=== PATIENT | male | born 1965 | race Hispanic/Latino ===

== ENCOUNTER 2020-12-17 11:49 | Emergency (ER) | payer MEDICAID ==
[~2020-12-17] VITALS: Ht 165.1 cm; Wt 93.0 kg
[2020-12-17 11:51] VITALS: BP 155/86
[2020-12-17 12:30] LABS: EOSINOPHILS % (AUTO) 3.2 % (0.0-8.0); HEMATOCRIT 31.2 % (42-54); LYMPHOCYTES % (AUTO) 43.2 % (21.0-51.0); MEAN CORPUSCULAR HEMOGLOBIN 27.9 pg (27.0-33.0); MEAN CORPUSCULAR HGB CONC 32.1 g/dL (32.0-36.0); MEAN CORPUSCULAR VOLUME 86.9 fL (79-99); MONOCYTES % (AUTO) 10.8 % (3.0-13.0); NEUTROPHILS % (AUTO) 41.7 % (40.0-77.0); PLATELET COUNT (AUTO) 107 K/uL (130-400); RED BLOOD CELL COUNT(AUTO) 3.59 MIL/uL (4.50-6.20); RED CELL DISTRIBUTION WIDTH 15.7 % (11.0-15.5); WHITE BLOOD COUNT (AUTO) 7.1 K/uL (4.8-10.8)
[2020-12-17 12:33] LABS: APPEARANCE,URINE Clear (CLEAR); BILIRUBIN,URINE Negative (NEGATIVE); COLOR,URINE Yellow (YELLOW); GLUCOSE, URINE (UA) Negative (NEGATIVE); KETONES,URINE Negative (NEGATIVE); LEUKOCYTE ESTERASE ,URINE Negative (NEGATIVE); NITRATE,URINE Negative (NEGATIVE); OCCULT BLOOD,URINE Negative (NEGATIVE); PROTEIN,URINE Negative (NEGATIVE)
[2020-12-17 12:41] LABS: INR 1.19 (0.85-1.15); POTASSIUM 3.9 mmol/L (3.5-5.1); PROTHROMBIN TIME 12.8 SEC (9.6-11.6)
[2020-12-17 12:45] LABS: BACTERIA,URINE None Seen /HPF (None Seen); RBC,URINE 0-1 /HPF (0-1); SQUAMOUS EPITHELIAL CELL,UR 0-2 /HPF (0-2); WBC,URINE 0-1 /HPF (0-1)
[2020-12-17 12:55] LABS: ALBUMIN 2.9 g/dL (3.5-5.0); B-TYPE NATRIURETIC PEPTIDE 46 pg/mL (0-100); BILIRUBIN,TOTAL 2.4 mg/dL (0.2-1.0); TOTAL PROTEIN, SERUM 7.8 g/dL (6.0-8.3)
[2020-12-17] MEDS ORDERED: ASPIRIN 325MG TAB PO SCH (12:59)
[2020-12-17] MEDS ORDERED: ACETAMINOPHEN 500 MG TABLET PO SCH (12:59)
[2020-12-17 13:26] LABS: AMPHET/METH SCREEN,URINE NEGATIVE (NEGATIVE); BARBITURATE SCREEN, URINE NEGATIVE (NEGATIVE); BENZODIAZEPINES SCREEN,URINE POSITIVE (NEGATIVE); CANNABINOID SCREEN,URINE NEGATIVE (NEGATIVE); COCAINE SCREEN,URINE NEGATIVE (NEGATIVE); OPIATE SCREEN,URINE NEGATIVE (NEGATIVE); PHENCYCLIDINE SCREEN,URINE NEGATIVE (NEGATIVE)
[2020-12-17 16:02] VITALS: BP 147/79
== END 2020-12-17 16:52 | disposition home or self-care (01) ==
LOC: EDH 11:49
DX: R07.89 Other chest pain (principal); F10.10 Alcohol abuse, uncomplicated; M54.9 Dorsalgia, unspecified; R00.2 Palpitations; R20.2 Paresthesia of skin; E78.00 Pure hypercholesterolemia, unspecified; I10 Essential (primary) hypertension; F41.9 Anxiety disorder, unspecified; Z79.82 Long term (current) use of aspirin
CPT/HCPCS: 36415; 70450; 71045; 80053; 80305; 81001; 82550; 83880; 84484; 85025; 85610; 85730; 93005

== ENCOUNTER 2021-01-02 11:43 | Inpatient (IN) | payer MEDICAID ==
[~2021-01-02] VITALS: Ht 165.1 cm; Wt 86.3 kg
[2021-01-02 12:38] LABS: BASOPHILS % (AUTO) 0.4 % (0.0-5.0); EOSINOPHILS % (AUTO) 0.1 % (0.0-8.0); HEMATOCRIT 26.1 % (42-54); LYMPHOCYTES % (AUTO) 9.9 % (21.0-51.0); MEAN CORPUSCULAR HEMOGLOBIN 29.5 pg (27.0-33.0); MEAN CORPUSCULAR HGB CONC 31.8 g/dL (32.0-36.0); MEAN CORPUSCULAR VOLUME 92.9 fL (79-99); MONOCYTES % (AUTO) 7.7 % (3.0-13.0); NEUTROPHILS % (AUTO) 81.5 % (40.0-77.0); PLATELET COUNT (AUTO) 238 K/uL (130-400); RED BLOOD CELL COUNT(AUTO) 2.81 MIL/uL (4.50-6.20); RED CELL DISTRIBUTION WIDTH 22.7 % (11.0-15.5); WHITE BLOOD COUNT (AUTO) 11.6 K/uL (4.8-10.8)
[2021-01-02 12:48] LABS: CREATININE 1.5 mg/dL (0.5-1.5); POTASSIUM 3.8 mmol/L (3.5-5.1)
[2021-01-02 12:53] LABS: ALBUMIN 2.4 g/dL (3.5-5.0); BILIRUBIN,TOTAL 3.4 mg/dL (0.2-1.0); TOTAL PROTEIN, SERUM 6.7 g/dL (6.0-8.3)
[2021-01-02 15:02] LABS: ALCOHOL, BLOOD < 3 mg/dL (0-10)
[2021-01-02 15:07] LABS: ACETAMINOPHEN < 1 mcg/mL (10-29); SALICYLATE < 2.8 mg/dL (2.8-20.0)
[2021-01-02 15:08] LABS: AMMONIA 292 umol/L (11-32)
[2021-01-02] MEDS ORDERED: ONDANSETRON 4MG INJ IV PRN (16:30)
[2021-01-02] MEDS ORDERED: LACTULOSE 20 GM/30 ML UDCUP PO PRN (16:30)
[2021-01-02] MEDS ORDERED: HYDRALAZINE 20MG/ML VIAL IV PRN (16:30)
[2021-01-02] MEDS: PANTOPRAZOLE 40MG INJ 80 MG in 0.9%NACL 100ML 100 ML IV SCH (17:15)
[2021-01-02] MEDS: OCTREOTIDE ACETATE 1,250 MCG in 0.9% NACL 250ML 250 ML IV SCH (17:15)
[2021-01-02] MEDS: LACTATED RINGERS 1000ML 1,000 ML IV SCH (17:15)
[2021-01-02] MEDS: LACTULOSE 20 GM/30 ML UDCUP PR SCH (18:39)
[2021-01-02 20:56] LABS: APPEARANCE,URINE Clear (CLEAR); BILIRUBIN,URINE Moderate (NEGATIVE); COLOR,URINE Dark Yellow (YELLOW); GLUCOSE, URINE (UA) Negative (NEGATIVE); KETONES,URINE Trace mg/dL (NEGATIVE); LEUKOCYTE ESTERASE ,URINE Small (NEGATIVE); NITRATE,URINE Positive (NEGATIVE); OCCULT BLOOD,URINE Negative (NEGATIVE); PROTEIN,URINE Trace mg/dL (NEGATIVE)
[2021-01-02] MEDS: ZOSYN 3.375GM+NS 50ML 50 ML IV SCH (21:00)
[2021-01-02 21:02] LABS: RBC,URINE 0-1 /HPF (0-1)
[2021-01-02 21:04] LABS: BACTERIA,URINE Rare /HPF (None Seen); SQUAMOUS EPITHELIAL CELL,UR Rare /HPF (0-2)
[2021-01-02 21:05] LABS: AMPHET/METH SCREEN,URINE NEGATIVE (NEGATIVE); BARBITURATE SCREEN, URINE NEGATIVE (NEGATIVE); BENZODIAZEPINES SCREEN,URINE POSITIVE (NEGATIVE); CANNABINOID SCREEN,URINE NEGATIVE (NEGATIVE); COCAINE SCREEN,URINE NEGATIVE (NEGATIVE); MUCUS,URINE Few LPF (None Seen); OPIATE SCREEN,URINE NEGATIVE (NEGATIVE); PHENCYCLIDINE SCREEN,URINE NEGATIVE (NEGATIVE)
[2021-01-02 21:44] LABS: HEMATOCRIT 25.1 % (42-54)
[2021-01-02] MEDS ORDERED: 0.9%NACL 50ML 50 ML IV ONE (22:30)
[2021-01-03] VITALS (14 sets, daily range): BP systolic 112–171; BP diastolic 65–89
[2021-01-03] MEDS: LACTULOSE 20 GM/30 ML UDCUP PR SCH ×2 (00:44→06:30)
[2021-01-03] MEDS ORDERED: PANTOPRAZOLE 40 MG/VIAL ONE ×2 (01:54→12:02)
[2021-01-03] MEDS ORDERED: 0.9%NACL 100ML 100 ML ONE ×2 (01:55→12:03)
[2021-01-03] MEDS: PANTOPRAZOLE 40MG INJ 80 MG in 0.9%NACL 100ML 100 ML IV SCH (01:59)
[2021-01-03] MEDS ORDERED: 0.9%NACL 50ML 50 ML IV ONE ×2 (06:28→13:04)
[2021-01-03] MEDS: ZOSYN 3.375GM+NS 50ML 50 ML IV SCH ×3 (06:30→21:52)
[2021-01-03] MEDS: LACTATED RINGERS 1000ML 1,000 ML IV SCH ×2 (06:30→21:40)
[2021-01-03 07:28] LABS: ALBUMIN 2.2 g/dL (3.5-5.0); BILIRUBIN,TOTAL 3.6 mg/dL (0.2-1.0); CREATININE 1.2 mg/dL (0.5-1.5); POTASSIUM 4.1 mmol/L (3.5-5.1); TOTAL PROTEIN, SERUM 6.2 g/dL (6.0-8.3)
[2021-01-03] MEDS ORDERED: PHARMACY COMMUNICATION MISC SCH (10:00)
[2021-01-03] MEDS ORDERED: LACTULOSE 20 GM/30 ML UDCUP PR SCH ×3 (10:00→20:00)
[2021-01-03 10:31] LABS: INR 1.32 (0.85-1.15)
[2021-01-03 16:57] LABS: HEMATOCRIT 25.5 % (42-54)
[2021-01-03 21:44] LABS: HEMATOCRIT 25.5 % (42-54)
[2021-01-04] VITALS (22 sets, daily range): BP systolic 112–152; BP diastolic 63–89
[2021-01-04] MEDS: LACTATED RINGERS 1000ML 1,000 ML IV SCH ×2 (02:59→19:00)
[2021-01-04] MEDS: PANTOPRAZOLE 40MG INJ 80 MG in 0.9%NACL 100ML 100 ML IV SCH (03:00)
[2021-01-04] MEDS: ZOSYN 3.375GM+NS 50ML 50 ML IV SCH ×3 (05:47→22:18)
[2021-01-04 05:52] LABS: BASOPHILS % (AUTO) 0.7 % (0.0-5.0); EOSINOPHILS % (AUTO) 1.1 % (0.0-8.0); HEMATOCRIT 24.1 % (42-54); LYMPHOCYTES % (AUTO) 23.9 % (21.0-51.0); MEAN CORPUSCULAR HEMOGLOBIN 29.7 pg (27.0-33.0); MEAN CORPUSCULAR VOLUME 93.1 fL (79-99); MONOCYTES % (AUTO) 12.6 % (3.0-13.0); NEUTROPHILS % (AUTO) 61.3 % (40.0-77.0); PLATELET COUNT (AUTO) 237 K/uL (130-400); RED BLOOD CELL COUNT(AUTO) 2.59 MIL/uL (4.50-6.20); RED CELL DISTRIBUTION WIDTH 23.5 % (11.0-15.5)
[2021-01-04 06:08] LABS: ALBUMIN 2.1 g/dL (3.5-5.0); BILIRUBIN,TOTAL 3.3 mg/dL (0.2-1.0); CREATININE 1.2 mg/dL (0.5-1.5); POTASSIUM 3.7 mmol/L (3.5-5.1); TOTAL PROTEIN, SERUM 6.1 g/dL (6.0-8.3)
[2021-01-04 09:26] LABS: INR 1.34 (0.85-1.15); PROTHROMBIN TIME 14.2 SEC (9.6-11.6)
[2021-01-04] MEDS ORDERED: RIFAXIMIN 550 MG TABLET PO SCH (10:30)
[2021-01-04] MEDS: OCTREOTIDE ACETATE 1,250 MCG in 0.9% NACL 250ML 250 ML IV SCH (11:50)
[2021-01-04] MEDS: RIFAXIMIN 550 MG TABLET PO SCH ×2 (11:50→22:18)
[2021-01-04] MEDS: LACTULOSE 20 GM/30 ML UDCUP PO SCH ×3 (11:51→22:19)
[2021-01-04] MEDS ORDERED: PEG 3350/NA SULF,BICARB,CL/KCL 4000 ML SOLN PO SCH ×2 (16:00→17:00)
[2021-01-04] MEDS ORDERED: LORAZEPAM 2 MG/ML 1 ML VIAL ONE (16:07)
[2021-01-04] MEDS: CHLORDIAZEPOXIDE HCL 25 MG CAP PO PRN ×2 (16:21→17:19)
[2021-01-04] MEDS ORDERED: CHLORDIAZEPOXIDE HCL 25 MG CAP PO PRN (16:30)
[2021-01-04] MEDS ORDERED: PHARMACY COMMUNICATION MISC PRN (16:30)
[2021-01-04] MEDS ORDERED: LORAZEPAM 2 MG/ML 1 ML VIAL IVP PRN (16:30)
[2021-01-04 16:55] LABS: HEMATOCRIT 24.6 % (42-54)
[2021-01-04] MEDS ORDERED: 0.9%NACL 50ML 50 ML IV ONE (20:28)
[2021-01-05] VITALS (28 sets, daily range): BP systolic 90–159; BP diastolic 49–92
[2021-01-05 01:26] LABS: HEMATOCRIT 24.7 % (42-54)
[2021-01-05 03:56] LABS: BASOPHILS % (AUTO) 0.9 % (0.0-5.0); EOSINOPHILS % (AUTO) 1.8 % (0.0-8.0); LYMPHOCYTES % (AUTO) 28.2 % (21.0-51.0); MEAN CORPUSCULAR HEMOGLOBIN 29.3 pg (27.0-33.0); MEAN CORPUSCULAR HGB CONC 31.3 g/dL (32.0-36.0); MEAN CORPUSCULAR VOLUME 93.5 fL (79-99); MONOCYTES % (AUTO) 14.6 % (3.0-13.0); NEUTROPHILS % (AUTO) 54.1 % (40.0-77.0); PLATELET COUNT (AUTO) 218 K/uL (130-400); RED BLOOD CELL COUNT(AUTO) 2.46 MIL/uL (4.50-6.20); WHITE BLOOD COUNT (AUTO) 8.9 K/uL (4.8-10.8)
[2021-01-05 04:11] LABS: ALBUMIN 2.1 g/dL (3.5-5.0); BILIRUBIN,TOTAL 3.7 mg/dL (0.2-1.0); CREATININE 1.2 mg/dL (0.5-1.5); MAGNESIUM 1.9 mg/dL (1.80-2.40); POTASSIUM 3.6 mmol/L (3.5-5.1); TOTAL PROTEIN, SERUM 5.8 g/dL (6.0-8.3)
[2021-01-05] MEDS: LACTATED RINGERS 1000ML 1,000 ML IV SCH (05:18)
[2021-01-05] MEDS ORDERED: 0.9%NACL 50ML 50 ML IV ONE (05:31)
[2021-01-05] MEDS: LACTULOSE 20 GM/30 ML UDCUP PO SCH ×3 (06:00→21:55)
[2021-01-05] MEDS: ZOSYN 3.375GM+NS 50ML 50 ML IV SCH ×3 (06:22→20:14)
[2021-01-05] MEDS ORDERED: LIDOCAINE HCL 1% 20 ML VIAL ONE (07:26)
[2021-01-05] MEDS ORDERED: PROPOFOL 10 MG/ML 20ML VIAL IV ONE (07:26)
[2021-01-05] MEDS: CHLORDIAZEPOXIDE HCL 25 MG CAP PO PRN (13:43)
[2021-01-05] MEDS: RIFAXIMIN 550 MG TABLET PO SCH ×2 (13:43→20:14)
[2021-01-05] MEDS: LORAZEPAM 2 MG/ML 1 ML VIAL IVP PRN ×3 (13:44→20:14)
[2021-01-05] MEDS ORDERED: DEXMEDETOMIDINE 400MCG/NS100ML IV SCH (14:00)
[2021-01-05] MEDS ORDERED: PEG 3350/NA SULF,BICARB,CL/KCL 4000 ML SOLN PO SCH (16:00)
[2021-01-05 20:59] LABS: HEMATOCRIT 24.6 % (42-54)
[2021-01-06] VITALS (25 sets, daily range): BP systolic 101–139; BP diastolic 52–84
[2021-01-06] MEDS ORDERED: LIDOCAINE HCL-MPF 1% 2ML VIAL IV PRN (01:30)
[2021-01-06] MEDS ORDERED: MAGNESIUM 2GM PREMIX 50ML 50 ML IV PRN (01:30)
[2021-01-06] MEDS ORDERED: POTASSIUM CHLORIDE 20MEQ/100ML 100 ML IV PRN (01:30)
[2021-01-06] MEDS ORDERED: POTASSIUM CHLORIDE 20MEQ/100ML 100 ML IV ONE (01:32)
[2021-01-06 03:57] LABS: BASOPHILS % (AUTO) 1.2 % (0.0-5.0); EOSINOPHILS % (AUTO) 3.7 % (0.0-8.0); HEMATOCRIT 23.3 % (42-54); LYMPHOCYTES % (AUTO) 43.7 % (21.0-51.0); MEAN CORPUSCULAR HEMOGLOBIN 29.6 pg (27.0-33.0); MEAN CORPUSCULAR HGB CONC 31.3 g/dL (32.0-36.0); MEAN CORPUSCULAR VOLUME 94.3 fL (79-99); MONOCYTES % (AUTO) 14.1 % (3.0-13.0); PLATELET COUNT (AUTO) 171 K/uL (130-400); RED BLOOD CELL COUNT(AUTO) 2.47 MIL/uL (4.50-6.20); RED CELL DISTRIBUTION WIDTH 22.1 % (11.0-15.5); WHITE BLOOD COUNT (AUTO) 6.5 K/uL (4.8-10.8)
[2021-01-06 04:12] LABS: ALBUMIN 1.8 g/dL (3.5-5.0); BILIRUBIN,TOTAL 3.2 mg/dL (0.2-1.0); CREATININE 1.1 mg/dL (0.5-1.5); TOTAL PROTEIN, SERUM 5.2 g/dL (6.0-8.3)
[2021-01-06] MEDS ORDERED: 0.9%NACL 50ML 50 ML IV ONE (05:27)
[2021-01-06] MEDS: LACTULOSE 20 GM/30 ML UDCUP PO SCH ×3 (05:41→20:31)
[2021-01-06] MEDS: ZOSYN 3.375GM+NS 50ML 50 ML IV SCH (05:41)
[2021-01-06] MEDS: PANTOPRAZOLE 40MG INJ 80 MG in 0.9%NACL 100ML 100 ML IV SCH (06:47)
[2021-01-06] MEDS: RIFAXIMIN 550 MG TABLET PO SCH ×2 (08:45→20:31)
[2021-01-06] MEDS ORDERED: LISI20TA24 PO (09:32)
[2021-01-06] MEDS ORDERED: ALPR2TAB7 PO (09:32)
[2021-01-06] MEDS ORDERED: PRAV40TA3 PO (09:33)
[2021-01-06 10:28] LABS: HEMATOCRIT 23.4 % (42-54)
[2021-01-06] MEDS ORDERED: M.V.I. IV [ADULT] 10 ML, FOLIC ACID 1 MG, THIAMINE HCL 100 MG in 0.9%NACL 1000ML 1,000 ML IV SCH (11:45)
[2021-01-06] MEDS ORDERED: COMPOUND IV REFRIGERATED 1 EACH MISC ONE (12:23)
[2021-01-06] MEDS: LORAZEPAM 2 MG/ML 1 ML VIAL IVP PRN (12:52)
[2021-01-06] MEDS ORDERED: PROPOFOL 10 MG/ML 20ML VIAL IV ONE (13:23)
[2021-01-06] MEDS: PANTOPRAZOLE 40 MG/VIAL IVP SCH (20:31)
[2021-01-06 23:25] LABS: HEMATOCRIT 23.8 % (42-54)
[2021-01-07] VITALS (11 sets, daily range): BP systolic 94–158; BP diastolic 50–83
[2021-01-07 03:09] LABS: HEPATITIS B CORE IGM Negative (Negative); HEPATITIS Bs ANTIGEN SCREEN P Negative (Negative)
[2021-01-07 03:32] LABS: MEAN CORPUSCULAR HEMOGLOBIN 30.1 pg (27.0-33.0); MEAN CORPUSCULAR HGB CONC 32.3 g/dL (32.0-36.0); MEAN CORPUSCULAR VOLUME 93.1 fL (79-99); RED BLOOD CELL COUNT(AUTO) 2.16 MIL/uL (4.50-6.20); RED CELL DISTRIBUTION WIDTH 21.9 % (11.0-15.5); WHITE BLOOD COUNT (AUTO) 9.1 K/uL (4.8-10.8)
[2021-01-07 03:47] LABS: HEMATOCRIT 20.1 % (42-54)
[2021-01-07 03:50] LABS: ALBUMIN 1.7 g/dL (3.5-5.0); BILIRUBIN,TOTAL 2.9 mg/dL (0.2-1.0); CREATININE 0.9 mg/dL (0.5-1.5); POTASSIUM 3.5 mmol/L (3.5-5.1); TOTAL PROTEIN, SERUM 4.7 g/dL (6.0-8.3)
[2021-01-07] MEDS ORDERED: POTASSIUM CHLORIDE 10% ELIXIR 20 MEQ/15 ML UDCUP PO PRN (05:30)
[2021-01-07] MEDS: LACTULOSE 20 GM/30 ML UDCUP PO SCH ×3 (05:30→21:52)
[2021-01-07 08:06] LABS: HEMATOCRIT 24.1 % (42-54); MEAN CORPUSCULAR HEMOGLOBIN 29.3 pg (27.0-33.0); MEAN CORPUSCULAR HGB CONC 31.5 g/dL (32.0-36.0); MEAN CORPUSCULAR VOLUME 93.1 fL (79-99); RED BLOOD CELL COUNT(AUTO) 2.59 MIL/uL (4.50-6.20); RED CELL DISTRIBUTION WIDTH 20.5 % (11.0-15.5); WHITE BLOOD COUNT (AUTO) 8.6 K/uL (4.8-10.8)
[2021-01-07 08:28] LABS: ALBUMIN 1.8 g/dL (3.5-5.0); BILIRUBIN,TOTAL 3.4 mg/dL (0.2-1.0); POTASSIUM 3.6 mmol/L (3.5-5.1)
[2021-01-07] MEDS: PANTOPRAZOLE 40 MG/VIAL IVP SCH (09:33)
[2021-01-07] MEDS: RIFAXIMIN 550 MG TABLET PO SCH ×2 (09:34→20:47)
[2021-01-07] MEDS: THIAMINE HCL 100 MG TABLET PO SCH ×2 (10:00→20:47)
[2021-01-07] MEDS: FOLIC ACID 1 MG TABLET PO SCH (10:00)
[2021-01-07] MEDS: PANTOPRAZOLE 40 MG TAB DR PO SCH (10:00)
[2021-01-07] MEDS ORDERED: NITROGLYCERIN 50MG/D5W 250ML 1 BOT ONE (13:50)
[2021-01-07] MEDS ORDERED: ROCURONIUM 10MG/1ML SYR 10 MG/ML ML ONE (14:00)
[2021-01-07 15:17] LABS: HEPATITIS Bs ANTIGEN SCREEN P Negative (Negative)
[2021-01-08 04:31] VITALS: BP 119/84
[2021-01-08 04:43] LABS: HEMATOCRIT 22.3 % (42-54); MEAN CORPUSCULAR HEMOGLOBIN 30.1 pg (27.0-33.0); MEAN CORPUSCULAR HGB CONC 32.3 g/dL (32.0-36.0); MEAN CORPUSCULAR VOLUME 93.3 fL (79-99); RED BLOOD CELL COUNT(AUTO) 2.39 MIL/uL (4.50-6.20); RED CELL DISTRIBUTION WIDTH 20.6 % (11.0-15.5); RETICULOCYTE % (AUTO) 4.92 % (0.42-2.23); WHITE BLOOD COUNT (AUTO) 8.5 K/uL (4.8-10.8)
[2021-01-08 04:45] LABS: INR 1.51 (0.85-1.15); PROTHROMBIN TIME 15.9 SEC (9.6-11.6)
[2021-01-08 04:46] LABS: PARTIAL THROMBOPLASTIN TIME 39.5 SEC (26.3-35.5)
[2021-01-08 04:58] LABS: % IRON SATURATION 14.1 % (30-44)
[2021-01-08 04:59] LABS: ALBUMIN 1.8 g/dL (3.5-5.0); BILIRUBIN,TOTAL 3.3 mg/dL (0.2-1.0); CREATININE 1.1 mg/dL (0.5-1.5); MAGNESIUM 1.8 mg/dL (1.80-2.40); PHOSPHORUS 1.9 mg/dL (2.5-4.9); POTASSIUM 3.9 mmol/L (3.5-5.1); THYROID STIMULATING HORMONE 2.61 uIU/mL (0.36-3.74); TOTAL PROTEIN, SERUM 5.2 g/dL (6.0-8.3)
[2021-01-08] MEDS: LACTULOSE 20 GM/30 ML UDCUP PO SCH ×3 (05:17→21:10)
[2021-01-08 07:44] VITALS: BP 112/68
[2021-01-08] MEDS: FOLIC ACID 1 MG TABLET PO SCH (09:53)
[2021-01-08] MEDS: PANTOPRAZOLE 40 MG TAB DR PO SCH (09:53)
[2021-01-08] MEDS: RIFAXIMIN 550 MG TABLET PO SCH ×2 (09:53→21:08)
[2021-01-08] MEDS: THIAMINE HCL 100 MG TABLET PO SCH ×2 (09:53→21:08)
[2021-01-08 12:00] VITALS: BP 126/68
[2021-01-08 16:00] VITALS: BP 117/65
[2021-01-08 20:00] VITALS: BP 129/64
[2021-01-08 23:53] VITALS: BP 109/44
[2021-01-09 04:02] VITALS: BP 109/59
[2021-01-09 05:20] LABS: CREATININE 0.9 mg/dL (0.5-1.5); POTASSIUM 3.7 mmol/L (3.5-5.1)
[2021-01-09 05:37] LABS: MEAN CORPUSCULAR HEMOGLOBIN 29.6 pg (27.0-33.0); MEAN CORPUSCULAR HGB CONC 31.7 g/dL (32.0-36.0); MEAN CORPUSCULAR VOLUME 93.5 fL (79-99); PLATELET COUNT (AUTO) 123 K/uL (130-400); RED BLOOD CELL COUNT(AUTO) 1.99 MIL/uL (4.50-6.20); RED CELL DISTRIBUTION WIDTH 21.6 % (11.0-15.5); WHITE BLOOD COUNT (AUTO) 7.4 K/uL (4.8-10.8)
[2021-01-09 05:44] LABS: HEMATOCRIT 18.6 % (42-54)
[2021-01-09] MEDS: LACTULOSE 20 GM/30 ML UDCUP PO SCH ×3 (06:00→19:44)
[2021-01-09 08:00] VITALS: BP 120/63
[2021-01-09 08:08] LABS: HEMATOCRIT 21.5 % (42-54)
[2021-01-09] MEDS: THIAMINE HCL 100 MG TABLET PO SCH ×2 (09:00→19:38)
[2021-01-09] MEDS: PANTOPRAZOLE 40 MG TAB DR PO SCH (09:00)
[2021-01-09] MEDS: FOLIC ACID 1 MG TABLET PO SCH (09:01)
[2021-01-09] MEDS: RIFAXIMIN 550 MG TABLET PO SCH ×2 (09:01→19:38)
[2021-01-09 12:00] VITALS: BP 153/46
[2021-01-09 16:00] VITALS: BP 128/82
[2021-01-09 19:19] VITALS: BP 142/75
[2021-01-09 21:00] LABS: HEMATOCRIT 22.2 % (42-54)
[2021-01-09 23:37] VITALS: BP 149/92
[2021-01-10 03:28] VITALS: BP 133/75
[2021-01-10] MEDS: LACTULOSE 20 GM/30 ML UDCUP PO SCH ×2 (05:57→13:20)
[2021-01-10] MEDS ORDERED: RIFA550T PO (06:13)
[2021-01-10] MEDS ORDERED: LACT PO (06:13)
[2021-01-10] MEDS ORDERED: FOLI1 PO (06:13)
[2021-01-10] MEDS ORDERED: THIA100T91 PO (06:13)
[2021-01-10 08:23] VITALS: BP 131/81
[2021-01-10] MEDS: RIFAXIMIN 550 MG TABLET PO SCH (09:36)
[2021-01-10] MEDS: THIAMINE HCL 100 MG TABLET PO SCH (09:36)
[2021-01-10] MEDS: FOLIC ACID 1 MG TABLET PO SCH (09:36)
[2021-01-10] MEDS: PANTOPRAZOLE 40 MG TAB DR PO SCH (09:36)
[2021-01-10 10:46] VITALS: BP 142/62
[2021-01-10] MEDS ORDERED: FLU VACC QS2021-22(6MOS UP)/PF 60 MCG/0.5 ML ML IM ONE (11:00)
[2021-01-10] MEDS ORDERED: FLU VACC QS2021-22(6MOS UP)/PF 60 MCG/0.5 ML ML IM SCH (12:00)
[2021-01-10 15:55] VITALS: BP 143/77
== END 2021-01-10 18:10 | disposition home or self-care (01) | DRG 280 ==
LOC: EDH 11:43 → EDHIP 11:44 → 2DH 01-03 14:43 → 3BH 01-07 19:46
PROVIDERS: ADMIT Internal Medicine; ATTEND Internal Medicine
PROC: 0DJ08ZZ Inspection of Upper Intestinal Tract, Via Natural or Artificial Opening Endoscopic (ICD-10-PCS; 2021-01-05)
PROC: 0DJD8ZZ Inspection of Lower Intestinal Tract, Via Natural or Artificial Opening Endoscopic (ICD-10-PCS; 2021-01-05)
PROC: 30233N1 Transfusion of Nonautologous Red Blood Cells into Peripheral Vein, Percutaneous Approach (ICD-10-PCS; 2021-01-05)
PROC: 0DBM8ZX Excision of Descending Colon, Via Natural or Artificial Opening Endoscopic, Diagnostic (ICD-10-PCS; principal; 2021-01-06)
PROC: 0DBN8ZX Excision of Sigmoid Colon, Via Natural or Artificial Opening Endoscopic, Diagnostic (ICD-10-PCS; 2021-01-06)
PROC: 0DBP8ZX Excision of Rectum, Via Natural or Artificial Opening Endoscopic, Diagnostic (ICD-10-PCS; 2021-01-06)
PROC: 3E02340 Introduction of Influenza Vaccine into Muscle, Percutaneous Approach (ICD-10-PCS; 2021-01-10)
DX: K70.40 Alcoholic hepatic failure without coma (principal); K70.30 Alcoholic cirrhosis of liver without ascites; I81 Portal vein thrombosis; E43 Unspecified severe protein-calorie malnutrition; F10.131 Alcohol abuse with withdrawal delirium; K63.3 Ulcer of intestine; D62 Acute posthemorrhagic anemia; E66.01 Morbid (severe) obesity due to excess calories; N17.9 Acute kidney failure, unspecified; K76.6 Portal hypertension; E78.5 Hyperlipidemia, unspecified; I10 Essential (primary) hypertension; D72.829 Elevated white blood cell count, unspecified; E86.0 Dehydration; E87.6 Hypokalemia; K31.89 Other diseases of stomach and duodenum; F41.9 Anxiety disorder, unspecified; E78.00 Pure hypercholesterolemia, unspecified; K76.0 Fatty (change of) liver, not elsewhere classified; B19.20 Unspecified viral hepatitis C without hepatic coma; D64.9 Anemia, unspecified; G31.9 Degenerative disease of nervous system, unspecified; N20.0 Calculus of kidney; Z68.31 Body mass index [BMI] 31.0-31.9, adult; Z23 Encounter for immunization
CPT/HCPCS: 36415; 36430; 43235; 45378; 45380; 70450; 71045; 74176; 74177; 76705; 80048; 80053; 80074; 80305; 81001; 82105; 82140; 82172; 82247; 82330; 82378; 82607; 82728; 82746; 82977; 83010; 83540; 83550; 83735; 83883; 84100; 84145; 84443; 84460; 85014; 85018; 85025; 85027; 85045; 85610; 85730; 86701; 86706; 86850; 86900; 86901; 86923; 87040; 87088; 87340; 87390; 87522; 87902; 88305; 88342; 92610; 97039; 99291; A4606; C9113; G0378; G0481; J0360; J2060; J2354; J2543; J2704; J3411; J3475; J3480; J3490; J7030; J7050; J7120; P9016; Q2035